=== PATIENT | female | born 1970 | race Asian ===

== ENCOUNTER → 2019-06-04 12:25 | Outpatient (BNVA) | payer OTHER, SELFPAY | PROVIDERS: Family Provider Family Medicine; Visit Provider Nurse Practitioner Family | DX: J01.00 Acute maxillary sinusitis, unspecified (principal) | CPT/HCPCS: 87081; 87804; 87880 ==

== ENCOUNTER 2020-02-04 19:46 | Emergency (ER) | payer OTHER, SELFPAY ==
[2020-02-04 19:53] VITALS: BP 152/101; PULSE 131; RESP 18; TEMP 38.8; O2SAT 97; BMI 41.8
--- NOTE | 2020-02-04 20:24 | XR_ITS ---
WS: [id number] EXAM: AP CHEST: PORTABLE UPRIGHT DATE OF EXAM: 02/04/2020, 1101 hours COMPARISON: Chest x-ray from 04/20/2015 HISTORY: Patient is 49 years old with Covid- 19 pneumonia. Shortness of breath and cough. FINDINGS: The cardiac silhouette is normal in size. The mediastinal contours are normal. The pulmonary vas cularity is normal. Some minimal patchy infiltrate in the left hilar region and left lung base. Righ t lung is clear. There is no effusion or pneumothorax. No acute bony abnormality is seen. XR/XR chest 1V portable [id number] IMPRESSION: Minimal left hilar and basilar infiltrate. Right lung is clear.
[2020-02-04 21:17] LABS: ABG PH Result 7.48 (7.35-7.45); Base Excess ABG 4.7 mmol/L (-2.0-2.0); HCO3 ABG 28.4 mmol/L (22-26); PO2 ABG 71.5 mmHg (80.0-100.0)
[2020-02-04] MEDS: acetaminophen 500 mg Tablet 1000 MG PO (21:17)
[2020-02-04 21:18] LABS: Blood Gas Allen Test P
[2020-02-04 22:46] VITALS: BP 94/60; O2SAT 95
--- NOTE | 2020-02-04 23:22 | ED_ITS ---
HPI - SOB/Dyspnea General: Chief Complaint: Shortness of Breath/Dyspnea Stated Complaint: covid+/sob Time Seen by Provider: 02/04/20 22:48 Source: patient Mode of arrival: ambulatory Limitations: no limitations History of Present Illness: HPI Narrative: Mrs. Horta is a nice 49-year-old female who comes in complaining of cough and shortness of breath. Patient states she is had symptoms of a dry cough and dyspnea for the past 4 days. 2 days ago the patient was tested at the [facility] for the COVID-19 virus and was told today she was positive. Because of her continued symptoms she came to the ER for evaluation. Patient denies any sore throat, loss of sense of taste or loss of sense of smell. She denies any chest pain, generalized weakness, lightheadedness or dizziness and her fevers do respond to Tylenol and Motrin. Associated symptoms: Deny abdominal pain, chest congestion, chest pain, diaphore sis, dizziness, extremity pain, fever(s), hemoptysis, lightheadedness, nausea, orthopnea, palpitations, syncope or vomiting Review of Systems Const: Reports: body aches, fatigue and malaise; Denies: fever(s), chills or diaphoresis Eyes: Denies: change in vision, blurry vision, photophobia, eye discomfort, eye discharge, eye redness or yellow eyes ENMT: Denies: throat pain, odynophagia, hoarseness, swelling of lips/tongue, ear or mastoid pain, ear discharge, change in hearing or nasal discharge Card: Denies: chest pain, palpitations, irregular heart rhythm, edema, lightheadedness, syncope, pre-syncope, dyspnea on exertion or orthopnea Resp: Reports: dyspnea and non-productive cough; Denies: productive cough, wheezing, hemoptysis or chest congestion GI: Denies: abdominal pain, nausea, vomiting, hematemesis, coffee ground emesis, heartburn, constipation, GI cramping, hematochezia or melena : Denies: flank pain, dysuria, urinary frequency, urinary urgency or hematuria Musc: Denies: neck pain, back pain, extremity pain, extremity swelling, joint pain, joint swelling, joint redness, joint warmth or joint stiffness Skin/Breast: Denies: rash, pruritus, erythema, skin pain or skin tenderness Neuro: Denies: headache(s), numbness in extremities, weakness in extremities, sensory changes, lack of coordination, difficulty walking, dizziness, vertigo, confusion, Slurred speech present or seizure-like activity Waldo/Lymph: Denies: easy bruising, easy bleeding, petechiae, purpura or enlarged lymph nodes All/Imm: Denies: urticaria, throat swelling, tongue swelling, facial swelling or acute wheezing PFSH ED PFSH: Medical History (Updated 02/05/20 @ 02:40 by So Saavedra) Hypertension Social History Smoking and tobacco status: never smoked Alcohol intake: never Physical Exam Const: COMMON NORMALS: no acute distress, patient oriented x3, no limitations and alert GENERAL APPEARANCE: cooperative HENMT: COMMON NORMALS: normocephalic, atraumatic, external ears normal, EAC's normal and Normal external nose present HEAD & SCALP: normal to inspection, normocephalic and atraumatic FACE & SINUS: normal facial exam and face symm etric NOSE: Normal external nose present and Normal nares present EXTERNAL EAR: Yes external ears normal EXTERNAL AUDITORY CANAL: EAC's normal MOUTH: Normal oral and palatal mucosa present, lip normal and tongue normal Eye: COMMON NORMALS: Equal, round and reactive pupils present and conjunctivae normal GENERAL EYE: appearance normal, both eyes and all related structures ALIGNMENT: Yes alignment normal PERIORBITAL: periorbital findings normal EYELID: eyelids normal CONJUNCTIVA: Yes conjunctivae normal SCLERA: sclerae normal PUPIL: Yes Equal, round and reactive pupils present Neck/C-Spine: COMMON NORMALS: full ROM, no lymphadenopathy, supple, no meningeal signs and no JVD GENERAL: Yes normal visual inspection and Yes trachea midline Chest: COMMONS NORMALS: normal inspection of the chest and normal palpation of entire chest wall Resp: COMMON NORMALS: normal respiratory effort, No retractions, No use of ac cessory muscles and clear to auscultation bilaterally EFFORT & INSPECTION: Yes able to speak in complete sentences and Yes symmetric chest movement AUSCULTATION: clear to auscultation bilaterally, no crackles, no rales, no rhonchi and no wheezes Cardio: COMMON NORMALS: no JVD, regular rate, regular rhythm, S1 normal heart sound present and S2 normal heart sound present RATE: regular rate RHYTHM: regular rhythm HEART SOUNDS: S1 normal heart sound present, S2 normal heart sound present, no click, no gallops, no murmurs and no rubs GI: COMMON NORMALS: Soft to palpation and No hepatosplenomegaly present PALPATION: Yes Soft to palpation, No Tenderness to palpation present (GI), No Guarding due to palpation present (GI), No Rigid due to palpation, Yes No hep atosplenomegaly present, No Hernia present, No Palpable mass present and No Pulsatile mass present : COMMON NORMALS: Yes no CVA tenderness BLADDER/KIDNEY EXAM: Yes no CVA tenderness EXTERNAL FEMALE EXAM: No Hernia present Back/Pelvis: COMMON NORMALS: no CVA tenderness, thoracic and lumbar spine normal to inspection, no thoracic nor lumbar tenderness and thoraco-lumbar ROM normal Extremity: COMMON NORMALS: normal to inspection, full ROM, capillary refill normal, no joint enlargement, no clubbing, cyanosis or edema and no calf tenderness Neuro: COMMON NORMALS: patient oriented x3, CN's II-XII intact bilaterally, moves all extremities, no focal motor deficits and no sensory deficits noted SENSORIUM/ORIENTATION: Yes alert MENINGEAL SIGNS: Yes no meningeal signs SPEECH: speech normal Psych: COMMON NORMALS: mental status grossly normal, Normal thought process present, cooperative, normal affect, speech normal and activity/motor behavior normal SPEECH: Yes normal speech THOUGHT PROCESS: Normal thought process present Skin: COMMON NORMALS: no rashes or lesions noted, turgor normal, no jaundice, no petechiae and no mottling GENERAL SKIN EXAM: no rashes or lesions noted and turgor normal Course Vital Signs: Vital signs: Vital Signs Temperature 101.8 F H 02/04/20 19:53 Pulse Rate 131 H 02/04/20 19:53 Respiratory Rate 18 02/04/20 19:53 Blood Pressure 152/101 02/04/20 19:53 Pulse Oximetry 97 02/04/20 19:53 MDM - SOB/Dyspnea MDM Narrative: Medical decision making narrative: 0238 -the patient is not hypoxic, she does not have labored respirations and she is feeling better after her IV fluids. Her tachycardia has resolved after treating her fever with both Tylenol and IV fluids. She is overall feeling better. She is ready to go home. I will place her on azithromycin as that has shown a mild anti-inflammatory effect in the past. She is not hypoxic so I do not believe she needs steroids. Patient has not butyryl inhaler at home that she says helps some and she will use that. I see no evidence of secondary pneumonia. The patient is not septic or toxic at this time. She agrees to return should her symptoms change or worsen but at this time she is feeling better and ready to be discharged. Lab Data: Labs: Lab Results 02/04/20 02/04/20 02/05/20 Range/Units 00:30 21:10 00:30 WBC 4.5 (4.0-10.0) 10^3/ uL RBC 5.16 (4.1-5.3) 10^6/u L Hgb 15.7 H (11.5-15.3) g/dL Hct 46.4 (37.0-47.0) % MCV 89.9 (81-99) fL MCH 30.4 (28.0-34.0) pg MCHC 33.8 (30.0-36.0) g/dL RDW 11.9 L (12.1-15.1) % Plt Count 229 (130-400) 10^3/c mm MPV 10.7 H (7.4-10.4) fL Neut % (Auto) 56.1 % Lymph % (Auto) 33.5 % [place] % (Auto) 9.4 % Eos % (Auto) 0.2 % Baso % (Auto) 0.4 % Neut # (Auto) 2.51 (1.8-7.7) 10^3/u L Lymph # (Auto) 1.5 (0.8-4.8) 10^3/u L [place] # (Auto) 0.4 (0.2-0.9) 10^3/u L Eos # (Auto) 0.0 (0.0-0.8) 10^3/u L Baso # (Auto) 0.0 (0.0-0.1) 10^3/u L Nucleated RBC % (a uto) 0 % Nucleated RBCs # 0.0 /100WBC ABG pH 7.48 H (7.35-7.45) ABG pCO2 38.0 (35-45) mmHg ABG pO2 71.5 L (80.0-100.0) mmH g ABG HCO3 28.4 H (22-26) mmol/L ABG Base Excess 4.7 H (-2.0-2.0) mmol/ L David Test P O2 Delivery Device None Sodium Cancelled Potassium Cancelled Chloride Cancelled Carbon Dioxide Cancelled Anion Gap Cancelled BUN Cancelled Creatinine Cancelled GFR Calculation Cancelled Glucose Cancelled Calculated Osmolal ity Cancelled Lactic Acid Calcium Cancelled Total Bilirubin Cancelled AST Cancelled ALT Cancelled Alkaline Phosphata se Cancelled Total Protein Cancelled Albumin Cancelled Globulin Cancelled 02/05/20 02/05/20 02/05/20 Range/Units 00:30 01:45 01:45 WBC (4.0-10.0) 10^3/ uL RBC (4.1-5.3) 10^6/u L Hgb (11.5-15.3) g/dL Hct (37.0-47.0) % MCV (81-99) fL MCH (28.0-34.0) pg MCHC (30.0-36.0) g/dL RDW (12.1-15.1) % Plt Count (130-400) 10^3/c mm MPV (7.4-10.4) fL Neut % (Auto) % Lymph % (Auto) % [place] % (Auto) % Eos % (Auto) % Baso % (Auto) % Neut # (Auto) (1.8-7.7) 10^3/u L Lymph # (Auto) (0.8-4.8) 10^3/u L [place] # (Auto) (0.2-0.9) 10^3/u L Eos # (Auto) (0.0-0.8) 10^3/u L Baso # (Auto) (0.0-0.1) 10^3/u L Nucleated RBC % (a uto) % Nucleated RBCs # /100WBC ABG pH (7.35-7.45) ABG pCO2 (35-45) mmHg ABG pO2 (80.0-100.0) mmH g ABG HCO3 (22-26) mmol/L ABG Base Excess (-2.0-2.0) mmol/ L David Test O2 Delivery Device Sodium 132 L Potassium 3.6 Chloride 93 L Carbon Dioxide 25 Anion Gap 17.6 BUN 16 Creatinine 0.6 GFR Calculation 105.8 Glucose 122 H Calculated Osmolal ity 272 L Lactic Acid Cancelled 1.0 Calcium 9.1 Total Bilirubin 0.4 AST 37 H ALT 42 H Alkaline Phosphata se 68 Total Protein 8.4 Albumin 4.4 Globulin 4.0 Imaging Data^: CXR: Attestation: I personally reviewed and interpreted this imaging study as follows: My impression: Mild bilateral lower lobe infiltrates Discharge Plan Discharge Patient Disposition: Home Clinical Impression: Viral pneumonia, COVID-19 virus infection Condition: Stable Prescriptions: New Zithromax Z-Torito 250 mg tablet See Rx Instructions .ROUTE .COMPLEX Qty: 6 RF: 0 Tessalon Perles 100 mg capsule 200 mg PO TID PRN (Reason: cough) Qty: 60 RF: 0 No Action lisinopril-hydrochlorothiazide 10-12.5 mg tablet 1 tab PO ONCE RF: 0 diphenhydramine HCl [Benadryl] 25 mg capsule 25 mg PO BID PRNRF: 0 Discharge Orders: Discharge Order (Routine); Ordered 02/05/20 Ordered By: So Saavedra Referrals: Nina Guerrero MD [Physician] - 1-3 days Discharge Diet: Advance as tolerated Discharge Activity: Increase activity as tolerated Patient Instructions: Viral Pneumonia (ED), Viral Syndrome (ED) Activity Restrictions/Additional Instructions: Please return to the ER immediately for any of the signs or symptoms listed on your discharge instruction sheets, worsening/changing of your symptoms, you are not getting better as quickly as expected, or for ANY other cause or concerns. Return to the ER for increased shortness of breath, he began to cough up blood, increased weakness, or for any other cause for concern. Coding Level of Care Code ED Clinical Dermatologist for Kia Fwfranci Exam Comprehensive
[2020-02-04 23:46] VITALS: BP 126/77; O2SAT 94
[2020-02-05 01:27] LABS: Basophils % 0.4 %; Eosinophils % 0.2 %; Hematocrit 46.4 % (37.0-47.0); Hemoglobin 15.7 g/dL (11.5-15.3); Lymphocytes # 1.5 10^3/uL (0.8-4.8); Lymphocytes % 33.5 %; Mean Corpuscular HGB Conc 33.8 g/dL (30.0-36.0); Mean Corpuscular Hemoglobin 30.4 pg (28.0-34.0); Mean Corpuscular Volume 89.9 fL (81-99); Mean Platelet Volume 10.7 fL (7.4-10.4); Monocytes # 0.4 10^3/uL (0.2-0.9); Monocytes % 9.4 %; Neutrophils # 2.51 10^3/uL (1.8-7.7); Neutrophils % 56.1 %; Nucleated Red Blood Cells % 0 %; Platelet Count 229 10^3/cmm (130-400); Red Blood Count 5.16 10^6/uL (4.1-5.3); Red Cell Distribution Width 11.9 % (12.1-15.1); White Blood Count 4.5 10^3/uL (4.0-10.0)
[2020-02-05 01:47] LABS: Slide Review Slide Review Perform
[2020-02-05] MEDS: sodium chloride 0.9% 1,000 ML 999 ML IV (01:50)
[2020-02-05 02:22] VITALS: BP 115/59; O2SAT 95
[2020-02-05 02:31] LABS: Alanine Aminotransferase 42 U/L (0-33); Albumin Level 4.4 g/dL (3.5-5.2); Alkaline Phosphatase 68 IU/L (35-105); Anion Gap 17.6 (5-19); Aspartate Amino Transferase 37 U/L (0-32); Blood Urea Nitrogen 16 mg/dL (6-20); Calcium 9.1 mg/dL (8.5-10.5); Carbon Dioxide 25 mmol/L (22-29); Chloride 93 mmol/L (98-107); Glomerular Filtration Rate 105.8 mL/min (90-130); Glucose 122 mg/dL (65-115); Osmolality Calculated 272 mOsm/kg (285-295); Potassium 3.6 mmol/L (3.5-5.1); Sodium 132 mmol/L (136-145); Total Bilirubin 0.4 mg/dL (0.15-1.2); Total Protein 8.4 g/dL (6.6-8.7)
[2020-02-05 03:47] LABS: Urine Appearance Cloudy (CLEAR); Urine Color Yellow (Yellow); pH Urine 5 (5-7)
[2020-02-05 03:48] LABS: Add Urine Culture? Yes; Bacteria Urine 3+ /hpf; Bilirubin Urine Neg (Negative); Blood Urine Neg (Negative); Glucose Urine UA Norm (Normal); Ketones Urine 1+ (Negative); Leukocyte Esterase Urine Negative (Negative); Nitrate Urine Negative (Negative); Protein Urine Trace (Negative); RBC Urine 0-4 /hpf (0-2); Specific Gravity, Urine 1.025 (1.005-1.030); Urobilinogen Urine Norm (Negative); WBC Urine 0-4 /hpf (0-5)
[2020-02-05] MEDS: azithromycin 250 mg Tablet 500 MG PO (04:30)
--- NOTE | 2020-02-05 05:15 | PC.NURSE ---
per Dr Saavedra, flu swab cancelled
[2020-02-05 06:06] VITALS: BP 96/51; PULSE 92; RESP 19; TEMP 37; O2SAT 95
[2020-02-06 07:36] LABS: Blood Gas Operator Identificat PE; Blood Gas Sample Site RR; Blood Gas Sample Type ARTERIAL
== END 2020-02-05 06:23 | disposition home or self-care (01) ==
PROVIDERS: Emergency Provider Emergency Medicine
DX: U07.1 COVID-19 (principal); J12.89 Other viral pneumonia; I10 Essential (primary) hypertension
CPT/HCPCS: 12345; 36600; 71045; 80053; 81001; 82803; 83605; 85025; 87040; 87086; 96360; 96361; 99282; 99283; J7030; Q0144

== ENCOUNTER 2020-10-08 08:13 | Emergency (ER) | payer OTHER, SELFPAY ==
--- NOTE | 2020-10-08 08:14 | XR_ITS ---
WS: [id number] Portable AP upright chest, 10/08/2020 Clinical Data: chest pain Comparison: Portable chest, 02/04/2020. Findings: No nodules, masses or effusions are seen. The heart is normal. The pulmonary vascularity is not increased. No pneumonia or pneumothorax is seen. There are monitor leads on the chest wall. XR/XR chest 1V portable [id number] Impression: Negative chest.
--- NOTE | 2020-10-08 08:14 | ECG_ITS ---
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 Measurements Intervals [place] Rate: 100 P: 70 DC: 163 QRS: 63 QRSD: 74 T: 62 QT: 324 QTc: 419 Interpretive Statements SINUS TACHYCARDIA LOW QRS VOLTAGE IN PRECORDIAL LEADS [QRS DEFLECTION < 1.0 mV IN CHEST LEADS] ABNORMAL RHYTHM ECG INTERPRETATION BASED ON A DEFAULT AGE OF 40 YEARS No previous ECG available for comparison Electronically Signed On 10-09-2020 10:06:39 CDT by Latonia Chi M.D. [id number] f
[2020-10-08 08:19] VITALS: BP 158/90; PULSE 110; RESP 15; TEMP 36.4; O2SAT 100; BMI 41.9
[2020-10-08 08:34] VITALS: BP 155/97; PULSE 106; RESP 15; O2SAT 98
--- NOTE | 2020-10-08 08:35 | ED_ITS ---
HPI - Chest Pain General: Chief Complaint: Chest Pain Stated Complaint: CP, Left shoulder pain Time Seen by Provider: 10/08/20 08:14 PFSH ED PFSH: Medical History (Updated 02/13/20 @ 00:00 by ) Hypertension Social History (Updated 10/08/20 @ 08:28 by Paramjit Rubio RN) Smoking and tobacco status: never smoked Alcohol intake: never Substance/Drug Use: never Course Vital Signs: Vital signs: Vital Signs Temperature 97.6 F 10/08/20 08:19 Pulse Rate 106 H 10/08/20 08:34 Respiratory Rate 15 10/08/20 08:34 Blood Pressure 155/97 10/08/20 08:34 Pulse Oximetry 98 10/08/20 08:34 Discharge Plan Discharge Prescriptions: No Action lisinopril-hydrochlorothiazide 10-12.5 mg tablet 1 tab PO ONCE RF: 0 diphenhydramine HCl [Benadryl] 25 mg capsule 25 mg PO BID PRNRF: 0 Zithromax Z-Torito 250 mg tablet See Rx Instructions .ROUTE .COMPLEX Qty: 6 RF: 0 Tessalon Perles 100 mg capsule 200 mg PO TID PRN (Reason: cough) Qty: 60 RF: 0 Coding Level of Care Code ED Director Housekeeping for Kia Bhandari
--- NOTE | 2020-10-08 08:43 | W.ED.BACK ---
HPI - Back Pain/Injury General: Chief Complaint: Chest Pain Stated Complaint: CP, Left shoulder pain Time Seen by Provider: 10/08/20 08:14 Source: patient Mode of arrival: ambulatory Limitations: no limitations History of Present Illness: HPI Narrative: Patient is a 50-year-old female who presents to ED today for evaluation of upper back pain. Patient tells me on her way to work she began noticing pain between her shoulder blades. No known injury or trauma. She states by the time she got to work pain had became severe rating it at an 8/10. She states a coworker noticed she was feeling very uncomfortable this prompted her to go see her PCP. Patient states she was seen at [facility] and because her back pain was not reproducible with palpation they recommended coming to the ED for further evaluation/cardiac work-up. Patient tells me upon arrival her pain is now at a 3?4/10. She states her pain does not seem to radiate into her chest. She did notice she felt a little nauseous this morning but states that was alleviated after taking Tums. She has no history of acid reflux or GERD. She is noted to be tachycardic upon arrival. She tells me her heart rate does run a little high . PMH is significant for HTN and prediabetes . She has no previous cardiac or pulmonary history. Patient does not complain of abdominal pain, chest pain, shortness of breath, or neurological symptoms at this time. MD elicited complaint: back pain Onset (ago): hour(s) Timing: constant Severity: moderate Similar Symptoms Previously: No Quality: sharp Location: thoracic spine Radiation: none Exacerbating factors: none Relieving factors: none Associated symptoms: Reports no associated symptoms and nausea; Deny abdominal pain, chills, difficulty walking, dysuria, fatigue, fever(s), syncope, urinary urgency or vomiting Work related injury: No Review of Systems Const: Denies: fever(s), chills, body aches, fatigue or malaise Eyes: Denies: change in vision, blurry vision, photophobia, floaters or seeing flashes ENMT: Denies: throat pain or odynophagia Card: Denies: chest pain, palpitations, irregular heart rhythm, edema, swelling of feet/ankles, lightheadedness, syncope, pre-syncope, dyspnea on exertion, orthopnea, leg pain with exertion or acrocyanosis Resp: Denies: dyspnea, productive cough, non-productive cough, wheezing, pain on inspiration, hemoptysis or chest congestion GI: Reports: nausea; Denies: abdominal pain, vomiting, heartburn, diarrhea or change in stool character : Denies: flank pain, difficulty voiding, dysuria, urinary frequency, urinary urgency or urinary hesitancy Musc: Reports: back pain; Denies: neck pain, extremity pain, extremity swelling, joint pain or joint swelling Skin/Breast: Denies: rash Neuro: Denies: headache(s), numbness in extremities, weakness in extremities, sensory changes, lack of coordination, difficulty walking or dizziness PFSH ED PFSH: Medical History (Updated 10/08/20 @ 09:32 by LILIANA Mae) Hypertension Social History (Updated 10/08/20 @ 08:28 by Paramjit Rubio RN) Smoking and tobacco status: never smoked Alcohol intake: never Substance/Drug Use: never Physical Exam Const: COMMON NORMALS: no acute distress, patient oriented x3, no limitations and alert GENERAL APPEARANCE: cooperative NUTRITIONAL APPEARANCE: obese ORIENTATION/CONSCIOUSNESS: Yes awake, Yes oriented to person, Yes oriented to place and Yes oriented to time HENMT: COMMON NORMALS: normocephalic and atraumatic HEAD & SCALP: normocephalic and atraumatic Neck/C-Spine: COMMON NORMALS: full ROM CERVICAL SPINE: Yes cervical ROM normal, No pain with cervical ROM, No Cervical spine tenderness and No Paracervical muscle tenderness Chest: COMMONS NORMALS: normal inspection of the chest and normal palpation of entire chest wall Resp: COMMON NORMALS: normal respiratory effort and clear to auscultation bilaterally AUSCULTATION: clear to auscultation bilaterally Cardio: COMMON NORMALS: regular rate and regular rhythm RATE: regular rate RHYTHM: regular rhythm GI: COMMON NORMALS: Normal to inspection, nondistended, normoactive bowel sounds present, Soft to palpation, non-tender, No hepatosplenomegaly present and no masses PALPATION: Yes Soft to palpation and Yes No hepatosplenomegaly present : COMMON NORMALS: Yes no CVA tenderness BLADDER/KIDNEY EXAM: Yes no CVA tenderness Back/Pelvis: COMMON NORMALS: no CVA tenderness, thoracic and lumbar spine normal to inspection, no thoracic nor lumbar tenderness and thoraco-lumbar ROM normal BACK IMAGE (FEMALE): 1. reports tenderness along here; not reproducible with palpation; not reproducible by neck or shoulder movement Extremity: COMMON NORMALS: normal to inspection and full ROM GENERAL: Yes normal exam except as noted OTHER: BP 158/90 in R arm; BP 155/97 in L arm Neuro: LANDY COMA SCALE: document GCS findings [place] coma scale eye opening: Spontaneous [place] coma scale verbal response: Orientated Landy coma scale motor response: Obey commands Landy coma scale total score: 15 COMMON NORMALS: patient oriented x3, CN's II-XII intact bilaterally, moves all extremities, no focal motor deficits and no sensory deficits noted SENSORIUM/ORIENTATION: Yes alert, Yes oriented to person, Yes oriented to place and Yes oriented to time Skin: COMMON NORMALS: no rashes or lesions noted GENERAL SKIN EXAM: no rashes or lesions noted TRAUMA: no lacerations or abrasions Course Vital Signs: Vital signs: Vital Signs Temperature 97.6 F 10/08/20 08:19 Pulse Rate 79 10/08/20 09:07 Respiratory Rate 20 H 10/08/20 09:00 Blood Pressure 119/69 10/08/20 09:07 Pulse Oximetry 99 10/08/20 09:00 MDM - Back Pain/Injury MDM Narrative: Medical decision making narrative: Patient's back pain has subsided to a 2/10 without any form of intervention here. Tachycardia has resolved with rest. Again she has no chest pains/abdominal pains. She has negative orthostatics. She is not hypotensive. Her CXR is normal. BP equal to bilateral UEs. Labs including troponin are negative. EKG shows no abnormal findings. Her physical exam is reassuring. At this time I feel comfortable letting patient go home with strict return to ED precautions. Patient agrees and wants to go back to work. Lab Data: Labs: Lab Results 10/08/20 10/08/20 10/08/20 Range/Units 08:45 08:45 08:45 WBC 7.5 (4.0-10.0) 10^3/ uL RBC 4.71 (4.1-5.3) 10^6/u L Hgb 14.3 (11.5-15.3) g/dL Hct 42.8 (37.0-47.0) % MCV 90.9 (81-99) fL MCH 30.4 (28.0-34.0) pg MCHC 33.4 (30.0-36.0) g/dL RDW 12.4 (12.1-15.1) % Plt Count 320 (130-400) 10^3/c mm MPV 9.3 (7.4-10.4) fL Neut % (Auto) 66.8 % Lymph % (Auto) 25.2 % Smy[place] % (Auto) 5.7 % Eos % (Auto) 1.1 % Baso % (Auto) 0.8 % Neut # (Auto) 5.01 (1.8-7.7) 10^3/u L Lymph # (Auto) 1.9 (0.8-4.8) 10^3/u L Smyth # (Auto) 0.4 (0.2-0.9) 10^3/u L Eos # (Auto) 0.1 (0.0-0.8) 10^3/u L Baso # (Auto) 0.1 (0.0-0.1) 10^3/u L Nucleated RBC % (a uto) 0 % Nucleated RBCs # 0.0 /100WBC Sodium 138 (136-145) mmol/L Potassium 4.1 (3.5-5.1) mmol/L Chloride 101 (98-107) mmol/L Carbon Dioxide 25 (22-29) mmol/L Anion Gap 16.1 (5-19) BUN 15 (6-20) mg/dL Creatinine 0.5 (0.5-0.9) mg/dL GFR Calculation 130.1 H (90-130) mL/min Glucose 105 (65-115) mg/dL Calculated Osmolal ity 287 (285-295) mOsm/k g Calcium 9.1 (8.5-10.5) mg/dL Total Bilirubin 0.3 (0.15-1.2) mg/dL AST 18 (0-32) U/L ALT 26 (0-33) U/L Alkaline Phosphata se 95 (35-105) IU/L Troponin T Baselin e 6 (0-10) ng/L Total Protein 7.7 (6.6-8.7) g/dL Albumin 4.6 (3.5-5.2) g/dL Globulin 3.1 (1.3-4.6) g/dL Imaging Data^: CXR: Radiologist's impression: [facility] [place], [place] [address]YWiv ReportSigned Patient: Jia Horta #: [id number]: 1970Acct#:[id number]/Sex: 50 / FADM Date: 10/08/20Loc: ERRoom/Bed:Attending Dr: Ordering Provider/Ordering MD: Miriam Newton Date of Service: 10/08/20 Procedure(s): XR chest 1V portable [id number] Accession Number(s): [id number] Report Number: [id number] WS: [id number] Portable AP upright chest, 10/08/2020 Clinical Data: chest pain Comparison: Portable chest, 02/04/2020. Findings: No nodules, masses or effusions are seen. The heart is normal. The pulmonary vascularity is not increased. No pneumonia or pneumothorax is seen. There are monitor leads on the chest wall. XR/XR chest 1V portable [id number] Impression: Negative chest. Dictated By:Yi Rhoades MDSigned By:Yi Rhoades MDSigned Date/Time:10/08/20845DD/ 5 EKG Data^: EKG 1: EKG interpretation date: 10/08/20 EKG interpretation time: 08:25 Interpretation: Sinus tachycardia Rate [address] elevation or depression changes noted Discharge Plan Discharge Patient Disposition: Home Clinical Impression: Acute upper back pain Condition: Stable Prescriptions: No Action lisinopril-hydrochlorothiazide 10-12.5 mg tablet 1 tab PO ONCE RF: 0 diphenhydramine HCl [Benadryl] 25 mg capsule 25 mg PO BID PRNRF: 0 Zithromax Z-Torito 250 mg tablet See Rx Instructions .ROUTE .COMPLEX Qty: 6 RF: 0 Tessalon Perles 100 mg capsule 200 mg PO TID PRN (Reason: cough) Qty: 60 RF: 0 Discharge Orders: Discharge ED (Routine); Ordered 10/08/20 Ordered By: Miriam Newton Activity Restrictions/Additional Instructions: As we discussed you need to return to the emergency department for worsening or severe back pain, chest pain, difficulty breathing, lightheadedness/dizziness/passing out episodes, shortness of breath, or any other concerns you may have. Otherwise you may follow-up with primary care. I hope you begin to feel better soon. Coding Level of Care Code ED Accounting Generalist for Kia Fwd Exam Comprehensive
[2020-10-08 08:50] VITALS: BP 155/97; PULSE 96; RESP 16; O2SAT 96
[2020-10-08 08:54] LABS: Basophils # 0.1 10^3/uL (0.0-0.1); Basophils % 0.8 %; Eosinophils # 0.1 10^3/uL (0.0-0.8); Eosinophils % 1.1 %; Hematocrit 42.8 % (37.0-47.0); Hemoglobin 14.3 g/dL (11.5-15.3); Lymphocytes # 1.9 10^3/uL (0.8-4.8); Lymphocytes % 25.2 %; Mean Corpuscular HGB Conc 33.4 g/dL (30.0-36.0); Mean Corpuscular Hemoglobin 30.4 pg (28.0-34.0); Mean Corpuscular Volume 90.9 fL (81-99); Mean Platelet Volume 9.3 fL (7.4-10.4); Monocytes # 0.4 10^3/uL (0.2-0.9); Monocytes % 5.7 %; Neutrophils # 5.01 10^3/uL (1.8-7.7); Neutrophils % 66.8 %; Nucleated Red Blood Cells % 0 %; Platelet Count 320 10^3/cmm (130-400); Red Blood Count 4.71 10^6/uL (4.1-5.3); Red Cell Distribution Width 12.4 % (12.1-15.1); White Blood Count 7.5 10^3/uL (4.0-10.0)
[2020-10-08 09:00] VITALS: BP 128/74; PULSE 95; RESP 20; O2SAT 99
[2020-10-08 09:07] VITALS: BP 119/69; BP 133/88; BP 145/85; PULSE 79; PULSE 89; PULSE 91
[2020-10-08 09:19] LABS: Alanine Aminotransferase 26 U/L (0-33); Albumin Level 4.6 g/dL (3.5-5.2); Alkaline Phosphatase 95 IU/L (35-105); Anion Gap 16.1 (5-19); Aspartate Amino Transferase 18 U/L (0-32); Blood Urea Nitrogen 15 mg/dL (6-20); Calcium 9.1 mg/dL (8.5-10.5); Carbon Dioxide 25 mmol/L (22-29); Chloride 101 mmol/L (98-107); Globulin 3.1 g/dL (1.3-4.6); Glomerular Filtration Rate 130.1 mL/min (90-130); Glucose 105 mg/dL (65-115); Osmolality Calculated 287 mOsm/kg (285-295); Potassium 4.1 mmol/L (3.5-5.1); Sodium 138 mmol/L (136-145); Total Bilirubin 0.3 mg/dL (0.15-1.2); Total Protein 7.7 g/dL (6.6-8.7)
[2020-10-08 09:21] LABS: Troponin(5th) Baseline 6 ng/L (0-10)
[2020-10-08 09:40] VITALS: BP 140/57; PULSE 91; RESP 23; O2SAT 99
== END 2020-10-08 09:40 | disposition home or self-care (01) ==
PROVIDERS: Emergency Provider Physician Assistant
DX: M54.6 Pain in thoracic spine (principal); I10 Essential (primary) hypertension
CPT/HCPCS: 71045; 80053; 84484; 85025; 93005; 99283

== ENCOUNTER → 2022-04-01 08:46 | Outpatient (BNVA) | payer OTHER, SELFPAY | PROVIDERS: PCP Family Medicine; Visit Provider Family Medicine | DX: I10 Essential (primary) hypertension (principal); Z76.89 Persons encountering health services in other specified circumstances; R73.03 Prediabetes | CPT/HCPCS: 80053; 80061; 83036; 84443; 85025 ==

== ENCOUNTER → 2022-10-15 18:40 | Outpatient (BNVA) | payer OTHER, SELFPAY | PROVIDERS: Visit Provider Registered Nurse Neonatal Intensive Care | DX: T14.8XXA Other injury of unspecified body region, initial encounter (principal); W57.XXXA Bitten or stung by nonvenomous insect and other nonvenomous arthropods, initial encounter | CPT/HCPCS: 86618; 86666; 86757 ==

== ENCOUNTER → 2023-05-10 10:00 | Outpatient (BNVA) | payer OTHER, SELFPAY | PROVIDERS: PCP Family Medicine; Visit Provider Nurse Practitioner Women's Health | DX: Z01.419 Encounter for gynecological examination (general) (routine) without abnormal findings (principal); Z12.39 Encounter for other screening for malignant neoplasm of breast; Z12.4 Encounter for screening for malignant neoplasm of cervix | CPT/HCPCS: 87624 ==

== ENCOUNTER 2023-05-19 11:15 | Outpatient (CLI) | payer OTHER, SELFPAY ==
--- NOTE | 2023-05-19 11:23 | MM_ITS ---
WS: [id number] BILATERAL 3D TOMOSYNTHESIS DIGITAL SCREENING MAMMOGRAPHY WITH CAD CLINICAL INFORMATION: SCREEN HISTORY: Screening mammogram. No current complaints. COMPARISON: 2013 TECHNIQUE: Bilateral CC and MLO views. FINDINGS: Scattered fibroglandular densities bilaterally. No suspicious focal mass, asymmetry, calcifications, or architectural distortion. No evidence of malignancy. Incidental punctate calcification LEFT breast . IMPRESSION: MM/[place] [id number] BI-RADS: 2-Benign FOLLOW UP: 1 Year Follow-up Recommend return to annual screening mammography.
== END 2023-05-19 11:16 | disposition home or self-care (01) ==
LOC: RAD 11:15
PROVIDERS: PCP Family Medicine; Visit Provider Nurse Practitioner Women's Health
DX: Z12.31 Encounter for screening mammogram for malignant neoplasm of breast (principal)
CPT/HCPCS: 77063; 77067

== ENCOUNTER 2023-06-22 16:00 | Outpatient (CLI) | payer OTHER, SELFPAY | END 2023-06-22 16:01 | disposition home or self-care (01) | LOC: SLEEP 06-23 10:03 | PROVIDERS: PCP Family Medicine; Visit Provider Family Medicine | DX: G47.33 Obstructive sleep apnea (adult) (pediatric) (principal); R09.02 Hypoxemia; R40.0 Somnolence; R53.82 Chronic fatigue, unspecified | CPT/HCPCS: G0399 ==